=== PATIENT | male | born 1980 | race Caucasian/White ===

== ENCOUNTER 2018-02-04 17:27 | Emergency (ER) | payer SELFPAY, OTHER, MEDICAID ==
[2018-02-04] MEDS: DIPHTH/TET/ACEL PERTUSS (ADULT) 0.5 ML VIAL IM* (19:58)
== END 2018-02-04 20:13 | disposition home or self-care (01) ==
LOC: FTE 17:27
DX: T25.221A Burn of second degree of right foot, initial encounter (principal); X19.XXXA Contact with other heat and hot substances, initial encounter; Y92.9 Unspecified place or not applicable; Z23 Encounter for immunization
CPT/HCPCS: 90471; 90715; 99284-25